=== PATIENT | female | born 1930 | race Caucasian/White ===

== ENCOUNTER 2016-09-25 12:17 | Inpatient (IN) | payer MEDICARE, BC ==
[2016-09-25] MEDS ORDERED: SODIUM CHLORIDE 0.9% 1,000 ML IV STA ×2 (13:17)
[2016-09-25] MEDS ORDERED: MORPHINE SULFATE 4 MG/ML SYRINGE IV STA (13:17)
[2016-09-25] MEDS ORDERED: ONDANSETRON 4 MG/2 ML VIAL IVP STA (13:17)
--- NOTE | 2016-09-25 13:17 | ED ---
General Adult HPI - General Chief complaint: Fall Stated complaint: Fall Time Seen by Provider: 09/25/16 12:19 Source: EMS, RN notes reviewed, old records reviewed Mode of arrival: EMS Limitations: no limitations - History of Present Illness Initial comments: This is a 85-year-old female the ER for evaluation. Patient was as a for evaluation of left hip pain. Left hip pain status post fall, patient has history of multiple orthopedic injuries including right hip fracture by Dr. Britton. Patient was also putting of left elbow pain. Patient did not hit her head has no headache, not on blood thinners. Patient's fall was mechanical slip and fall she was tripped over a sock noted on her for - Related Data Home Medications Medication Instructions Recorded Confirmed Atenolol [Tenormin] 12.5 mg PO BID 09/28/13 09/25/16 Ibuprofen [Motrin] 200 mg PO Q6HR PRN 09/25/16 09/25/16 Loratadine [Claritin] 10 mg PO DAILY 09/25/16 09/25/16 Oxymetazoline HCl [Vicks Sinex] 1 spray EA NOSTRIL DAILY PRN 09/25/16 09/25/16 Allergies Allergy/AdvReac Type Severity Reaction Status Date / Time No Known Allergies Allergy Verified 09/25/16 12:37 Review of Systems ROS Statement: Those systems with pertinent positive or pertinent negative responses have been documented in the HPI. ROS Other: All systems not noted in ROS Statement are negative. Past Medical History Past Medical History: Hyperlipidemia, Hypertension, Osteoarthritis (OA) History of Any Multi-Drug Resistant Organisms: None Reported Past Surgical History: Cholecystectomy, Hernia Repair, Hysterectomy, Orthopedic Surgery Past Psychological History: No Psychological Hx Reported Smoking Status: Former smoker General Exam Limitations: no limitations General appearance: alert, in no apparent distress Head exam: Present: atraumatic, normocephalic, normal inspection Eye exam: Present: normal appearance, PERRL, EOMI. Absent: scleral icterus, conjunctival injection, periorbital swelling ENT exam: Present: normal exam, mucous membranes moist Neck exam: Present: normal inspection. Absent: tenderness, meningismus, lymphadenopathy Respiratory exam: Present: normal lung sounds bilaterally. Absent: respiratory distress, wheezes, rales, rhonchi, stridor Cardiovascular Exam: Present: regular rate, normal rhythm, normal heart sounds. Absent: systolic murmur, diastolic murmur, rubs, gallop, clicks GI/Abdominal exam: Present: soft, normal bowel sounds. Absent: distended, tenderness, guarding, rebound, rigid Extremities exam: Present: normal inspection, full ROM, normal capillary refill , other (Left hip deformity, shortened). Absent: tenderness, pedal edema, joint swelling, calf tenderness Back exam: Present: normal inspection Neurological exam: Present: alert, oriented X3, CN II-XII intact Psychiatric exam: Present: normal affect, normal mood Skin exam: Present: warm, dry, intact, normal color. Absent: rash Course Vital Signs 09/25/16 12:20 Temperature 98.3 F Pulse Rate 69 Respiratory 16 Rate Blood Pressure 144/77 O2 Sat by Pulse 93 L Oximetry - Reevaluation(s) Reevaluation #1: 09/25/16 13:26 Pain is controlled at this point Medical Decision Making - Medical Decision Making 85 female ER for evaluation of hip fracture status post fall. Positive fracture , previous operation by Dr. Britton, will admit for orthopedic evaluation and treatment - Radiology Data Radiology results: report reviewed (X-ray left hip, x-ray left elbow, x-ray chest patient does have positive left hip fracture), image reviewed Disposition Clinical Impression: Hip fracture, left, Fall Disposition: ADMITTED IP TO THIS [facility] Condition: Fair Referrals: Carey Jimenez MD [Primary Care Provider] - 1-2 days
[2016-09-25] MEDS: SODIUM CHLORIDE 0.9% 1,000 ML IV ONE ×2 (13:40→16:01)
[2016-09-25 14:13] LABS: Basophils % (A) 0 %; CH 29.9; CHCM 32.6; Eosinophils # (A) 0.1 k/uL (0-0.7); Eosinophils % (A) 2 %; HCT 35.8 % (34.0-46.0); HDW 2.22; HGB 11.7 gm/dL (11.4-16.0); Luc # (Auto) 0.05; Luc % (Auto) 1; Lymphocytes # (A) 0.5 k/uL (1.0-4.8); Lymphocytes % (A) 6 %; MCH 30.2 pg (25.0-35.0); MCHC 32.8 g/dL (31.0-37.0); MCV 92.1 fL (80.0-100.0); Mean Platelet Volume 7.3; Monocytes # (A) 0.2 k/uL (0-1.0); Monocytes % (A) 3 %; Neutrophils # (A) 6.7 k/uL (1.3-7.7); Neutrophils % (A) 89 %; RBC 3.89 m/uL (3.80-5.40); WBC 7.6 k/uL (3.8-10.6); WBC (Perox) 7.81
--- NOTE | 2016-09-25 14:16 | XR ---
EXAMINATION TYPE: XR Hip LT and AP Pelvis DATE OF EXAM: 09/25/2016 1:12 PM COMPARISON: 09/28/2013 HISTORY: Left hip pain TECHNIQUE: 3 views are findings There is a right hip nailing fixing an apparent old intertrochanteric fracture of the right femur. Th ere is intramedullary patrice in the right femur. Bones are osteopenic. Pelvic ring appears intact. There is a nondisplaced intertrochanteric fracture left femur. There is no dislocation. IMPRESSION: There is acute intertrochanteric fracture left femur compared to old exam. No displacemen t.
[2016-09-25 14:22] LABS: ALT 23 U/L (9-52); AST 28 U/L (14-36); Alkaline Phosphatase 101 U/L (38-126); Anion Gap 8 mmol/L; Blood Urea Nitrogen 21 mg/dL (7-17); Carbon Dioxide 26 mmol/L (22-30); Chloride 108 mmol/L (98-107); Glucose 92 mg/dL (74-99); Non-African American GFR(MDRD) >60 (>60 ml/min/1.73 sqM); Potassium 4.2 mmol/L (3.5-5.1); Sodium 142 mmol/L (137-145); Total Bilirubin 0.5 mg/dL (0.2-1.3); Total Protein 6.7 g/dL (6.3-8.2)
[2016-09-25 14:27] LABS: INR 1.1 (<1.1); Partial Thromboplastin Time 33.2 sec (22.0-30.0); Prothrombin Time 10.7 sec (9.0-12.0)
[2016-09-25 14:34] LABS: Creatine Kinase 109 U/L (30-135)
[2016-09-25 14:47] LABS: Troponin I <0.012 ng/mL (0.000-0.034)
[2016-09-25 14:50] LABS: Creatine Kinase MB 3.6 ng/mL (0.0-2.4)
--- NOTE | 2016-09-25 14:57 | XR ---
EXAMINATION TYPE: XR chest 1V DATE OF EXAM: 09/25/2016 2:52 PM COMPARISON: 09/28/2013 HISTORY: Preop hip surgery TECHNIQUE: Single frontal view of the chest is obtained. FINDINGS: Heart is normal. The thoracic aorta is atheromatous. Lungs are clear. There is no heart fa ilure. There are no hilar masses. There is no pleural effusion. IMPRESSION: No active cardiopulmonary disease. Atheromatous aorta. There is clearing of interstitial pulmonary infiltrates since last exam.
--- NOTE | 2016-09-25 15:01 | XR ---
EXAMINATION TYPE: XR elbow complete LT DATE OF EXAM: 09/25/2016 1:12 PM COMPARISON: NONE HISTORY: Pain after a fall TECHNIQUE: 3 views FINDINGS: There is narrowing of the joint spaces. There is spurring on the radial head and the aman l condyles. I see no fracture. There is no dislocation. There is no sign of joint effusion. There is tiny 1 mm densities adjacent to the medial humeral condyle that could be cutaneous foreign bodies. IMPRESSION: Possible foreign bodies. Osteoarthritis. No fracture.
[2016-09-25] MEDS: MORPHINE SULFATE 2 MG/ML SYRINGE IVP PRN ×2 (15:58→21:20)
[2016-09-25 17:12] LABS: Appearance,Urine Clear (Clear); Bilirubin,Urine Negative (Negative); Glucose,Urine (UA) Negative (Negative); Ketones,Urine 1+ (Negative); Leukocyte Esterase,Urine Negative (Negative); Nitrite,Urine Negative (Negative); PH, Urine 5.5 (5.0-8.0); Protein,Urine Negative (Negative); Specific Gravity,Urine 1.013 (1.001-1.035); UA Billing (MACRO vs. MICRO) CHEM; Urobilinogen,Urine <2.0 mg/dL (<2.0)
[2016-09-26] MEDS: MORPHINE SULFATE 2 MG/ML SYRINGE IVP PRN (06:22)
--- NOTE | 2016-09-26 08:20 | P.HPOR ---
History of Present Illness H&P Date: 09/26/16 Chief Complaint: Left hip fracture This is an 85-year-old female who was admitted through the emergency department last evening after falling and sustaining injury to her left hip. She states that she was mopping her floor and slipped. On exam and x-ray in the emergency room she was found to have an intertrochanteric fracture of the left hip. Past Medical History Past Medical History: Hyperlipidemia, Hypertension, Osteoarthritis (OA) History of Any Multi-Drug Resistant Organisms: None Reported Past Surgical History: Cholecystectomy, Hernia Repair, Hysterectomy, Orthopedic Surgery Past Anesthesia/Blood Transfusion Reactions: No Reported Reaction Past Psychological History: No Psychological Hx Reported Smoking Status: Former smoker Medications and Allergies Home Medications Medication Instructions Recorded Confirmed Type Atenolol [Tenormin] 12.5 mg PO BID 09/28/13 09/25/16 History Ibuprofen [Motrin] 200 mg PO Q6HR PRN 09/25/16 09/25/16 History Loratadine [Claritin] 10 mg PO DAILY 09/25/16 09/25/16 History Oxymetazoline HCl [Vicks Sinex] 1 spray EA NOSTRIL DAILY PRN 09/25/16 09/25/16 History Allergies Allergy/AdvReac Type Severity Reaction Status Date / Time No Known Allergies Allergy Verified 09/25/16 12:37 Physical Examination This is a pleasant 85-year-old female in no acute distress. She is alert and oriented 3. Exam of the head and neck reveals no obvious deformity. She has full cervical spine motion without difficulty or pain. There is no pain on palpation about the cervical spine or paraspinal musculature. Exam of the upper extremities is unremarkable. She has fairly good shoulder, elbow, wrist and finger motion. Neurovascular status to the upper extremities is intact. Exam of the lower extremities reveals no obvious deformity. There is pain with any motion to the left hip. She has full foot and ankle motion without difficulty or pain. Neurovascular status to the lower extremities is intact. Results Hip and pelvis x-rays reveal hardware in place to the right hip and femur. There is an acute nondisplaced intertrochanteric fracture of the left hip. - Labs Labs: Abnormal Lab Results - Last 24 Hours (Table) 09/25/16 09/25/16 09/25/16 Range/Units 13:44 13:44 13:44 Lymphocytes # 0.5 L (1.0-4.8) k/uL APTT (22.0-30.0) sec Chloride 108 H (98-107) mmol/L BUN 21 H (7-17) mg/dL CK-MB (CK-2) 3.6 H* (0.0-2.4) ng/mL Urine Ketones (Negative) 09/25/16 09/25/16 Range/Units 13:44 17:00 Lymphocytes # (1.0-4.8) k/uL APTT 33.2 H (22.0-30.0) sec Chloride (98-107) mmol/L BUN (7-17) mg/dL CK-MB (CK-2) (0.0-2.4) ng/mL Urine Ketones 1+ H (Negative) Microbiology - Last 24 Hours (Table) 09/25/16 17:00 Urine Culture - Preliminary Urine,Catheterized H & H 09/25/16 Range/Units 13:44 Hgb 11.7 (11.4-16.0) gm/dL Hct 35.8 (34.0-46.0) % Coagulation 09/25/16 Range/Units 13:44 INR 1.1 (<1.1) Result Diagrams: 09/25/16 13:44 09/25/16 13:44 Assessment and Plan (1) Hip fracture, left Status: Acute (2) Intertrochanteric fracture of left hip Status: Acute Plan: The clinical and neck she findings are discussed the patient. It is recommended that she undergo closed reduction with insertion of intertrochanteric nail of the left hip. The procedures been discussed in detail including the possible risks and outcomes. She will most likely require inpatient rehab postoperatively.
[2016-09-26] MEDS: ENOXAPARIN 40 MG/0.4 ML SYRINGE SQ SCH (09:00)
--- NOTE | 2016-09-26 09:39 | P.CONS ---
History of Present Illness - Reason for Consult Consult date: 09/26/16 Medical management Requesting physician: Jesse Sweeney - Chief Complaint Left hip pain - History of Present Illness This is a 85-year-old female, patient of Dr. Rowe. She has a known past medical history of hypertension, hyperlipidemia and osteoarthritis. She also has a remote history of smoking. Patient was cleaning her kitchen in her house shoes that have. She tripped and fell landing on her left hip. She was unable to get up. Ambulance was called and she was brought into the emergency room. She was found to have a left hip fracture. She was admitted to the orthopedics service. She is scheduled for surgery today. She had no loss of consciousness. She did not hit her head. She denies any chest pain, shortness of breath, nausea or vomiting, diarrhea or constipation, burning with urination , fever or chills or sweats. We have been consulted for medical management. She's had further episodes of tripping and falling and previous fractures. Chest x-ray showed no acute pulmonary process: EKG had shown a normal sinus rhythm with a left anterior fascicular block and nonspecific ST abnormality. Troponin was negative patient has no chest pain Review of Systems Please refer to HPI otherwise unremarkable Past Medical History Past Medical History: Hyperlipidemia, Hypertension, Osteoarthritis (OA) History of Any Multi-Drug Resistant Organisms: None Reported Past Surgical History: Cholecystectomy, Hernia Repair, Hysterectomy, Orthopedic Surgery Past Anesthesia/Blood Transfusion Reactions: No Reported Reaction Past Psychological History: No Psychological Hx Reported Smoking Status: Former smoker Medications and Allergies Home Medications Medication Instructions Recorded Confirmed Type Atenolol [Tenormin] 12.5 mg PO BID 09/28/13 09/25/16 History Ibuprofen [Motrin] 200 mg PO Q6HR PRN 09/25/16 09/25/16 History Loratadine [Claritin] 10 mg PO DAILY 09/25/16 09/25/16 History Oxymetazoline HCl [Vicks Sinex] 1 spray EA NOSTRIL DAILY PRN 09/25/16 09/25/16 History Allergies Allergy/AdvReac Type Severity Reaction Status Date / Time No Known Allergies Allergy Verified 09/25/16 12:37 Physical Exam Vitals: Vital Signs Temp Pulse Pulse Resp BP BP Pulse Ox 09/26/16 07:00 98.1 F 76 18 122/59 90 L 09/25/16 23:20 79 18 09/25/16 22:23 98.1 F 79 18 112/57 93 L 09/25/16 16:14 98.1 F 87 18 124/62 91 L 09/25/16 12:20 98.3 F 69 16 144/77 93 L Intake and Output 09/25/16 09/26/16 09/26/16 22:59 06:59 14:59 Intake Total 240 600 Output Total 375 Balance 240 225 Intake: Intake, IV Titration 600 Amount Sodium Chloride 0.9% 1, 600 000 ml @ 100 mls/hr IV . Q10H [facility] Rx#:[id number] Oral 240 Output: Urine 375 Other: Voiding Method Indwelling Catheter Head normocephalic Neck supple Lungs clear to auscultation bilaterally no wheezing or crackles Heart regular rate and rhythm S1-S2, no rub or gallop Abdomen is soft nontender nondistended positive bowel sounds no hepatosplenomegaly Extremities no edema. Left leg elevated. Tenderness with palpation. Neuro alert and orientated to 3 Skin, no lesions or lacerations or rashes noted. There is bruising noted on left elbow Results CBC & Chem 7: 09/25/16 13:44 09/25/16 13:44 Labs: Abnormal Lab Results - Last 24 Hours (Table) 09/25/16 09/25/16 09/25/16 Range/Units 13:44 13:44 13:44 Lymphocytes # 0.5 L (1.0-4.8) k/uL APTT (22.0-30.0) sec Chloride 108 H (98-107) mmol/L BUN 21 H (7-17) mg/dL CK-MB (CK-2) 3.6 H* (0.0-2.4) ng/mL Urine Ketones (Negative) 09/25/16 09/25/16 Range/Units 13:44 17:00 Lymphocytes # (1.0-4.8) k/uL APTT 33.2 H (22.0-30.0) sec Chloride (98-107) mmol/L BUN (7-17) mg/dL CK-MB (CK-2) (0.0-2.4) ng/mL Urine Ketones 1+ H (Negative) Microbiology - Last 24 Hours (Table) 09/25/16 17:00 Urine Culture - Preliminary Urine,Catheterized Assessment and Plan Plan: 1. Acute left hip fracture: Patient is scheduled for closed reduction with insertion of intertrochanteric nail of the left hip. She is medically stable to proceed with surgery. Patient is intermediate risk for surgery due to her age and history of hypertension. No evidence of any acute infection. Chest x- ray negative. EKG reviewed showing normal sinus rhythm left anterior fascicular block and nonspecific ST-T abdomen only. Troponin negative. Last stress test was a year ago and was negative per patient 2. Essential hypertension continue with the atenolol 3. Seasonal ALLERGIES: Continue Claritin 4. History of hyperlipidemia GI prophylaxis Pepcid and DVT prophylaxis Lovenox Check routine labs in the morning Thank you for this consultation. We will continue to follow along with you. Time with Patient: Greater than 30 (Greater than 50% of the total time spent in counseling and coordination of care.I performed an examination of the patient and discussed their management with the physician Call Center Support Representative. I have reviewed the Physician Call Center Support Representative's notes and agree with the documented findings and plan of care)
[2016-09-26] MEDS ORDERED: LACTATED RINGERS 1,000 ML IV ONE (10:17)
[2016-09-26] MEDS ORDERED: ONDANSETRON 4 MG/2 ML VIAL IVP ONE (10:18)
[2016-09-26] MEDS ORDERED: diphenhydrAMINE 50 MG/ML 1 ML VIAL ONE (10:36)
[2016-09-26] MEDS ORDERED: MIDAZOLAM 2 MG/2 ML VIAL ONE (10:36)
[2016-09-26] MEDS ORDERED: PHENYLEPHRINE-0.9% NACL SYG 1 MG/10 ML SYRINGE ONE (10:36)
[2016-09-26] MEDS ORDERED: KETAMINE 10 MG/ML 20 ML VIAL ONE (10:36)
[2016-09-26] MEDS ORDERED: fentaNYL (PF) 50 MCG/ML 2 ML AMP ONE (10:36)
[2016-09-26] MEDS ORDERED: SODIUM CHLORIDE 0.9% 100 ML with ceFAZolin 1,000 MG IV ONE ×2 (10:50)
[2016-09-26] MEDS ORDERED: ceFAZolin 1,000 MG in SODIUM CHLORIDE 0.9% 1,000 ML IRRIGATION ONE (10:50)
--- NOTE | 2016-09-26 11:36 | P.OP ---
Date of Procedure: 09/26/16 Preoperative Diagnosis: Postoperative Diagnosis: Procedure(s) Performed: PREOPERATIVE DIAGNOSIS: Left hip intertrochanteric fracture. POSTOPERATIVE DIAGNOSIS: Left hip intertrochanteric fracture. OPERATION: Left hip intertrochanteric fracture closed reduction and intramedullary nailing using Synthes IT nail. FOOD SERVICE AIDE: Ruth Rodrigues (Assistance with: Patient positioning, retraction, exposure, hemostasis, fixation, irrigation, closure, dressing) ANESTHESIA: Spinal ESTIMATED BLOOD LOSS: 20 mL. COMPLICATIONS: None OPERATIVE FINDINGS: See dictation INDICATIONS: Mrs. Lugo is an 85-year-old female with a history of falling and sustaining a nondisplaced left intertrochanteric fracture. The patient presents to the operating room today for closed reduction and intramedullary nailing. I discussed the risks of surgery in detail as being inclusive of but not limited to: Bleeding, infection, scarring, discomfort, blood vessel and/or nerve damage, need for further surgery, malunion, nonunion, gait disturbance including persistent or permanent limp, limb length inequality, arthritis, hardware failure, blood clot, pulmonary embolism, , and other risks. The consent form has been signed. PROCEDURE: After appropriate consent was obtained, the patient was taken to the operating room and placed in supine position. Spinal anesthetic was administered and after confirmation of adequate anesthesia, the patient was carefully placed in the supine position on the operating room table in the fracture table. The patient was placed up against a well-padded peroneal post. Care was taken to make sure about that all pressure points were adequately padded. The affected leg was placed in boot traction and the unaffected leg was placed in a well leg feliciano. Using gentle longitudinal distraction as well as adduction and internal rotation, the fracture was reduced as assessed by AP and lateral C-arm imaging. Once a satisfactory reduction had been obtained, the thigh was prepped and draped in the usual aseptic fashion using ChloraPrep. Ioban drape was used for the case and the patient received intravenous antibiotics prior to incision. Timeout was called, confirming patient identity, side, procedure, and administration of antibiotics. The incision was then created with a #10 blade just proximal to the greater trochanter laterally. It was carried down through skin into the subcutaneous tissues and through fascia. Hemostasis was obtained using electrocautery. The tip of the greater trochanter was palpated and a guide pin was placed at the tip and directed into the femoral shaft as assessed with C-arm imaging. Once optimal pin position had been obtained, a 17 mm reamer was used over the guide pin to create a path for the IT nail. IT nail selected was assembled to the insertion jig on the back table and bushings were checked for accuracy. The nail was then inserted using gentle mallet taps until it was fully deployed. The amount of rotation of the implant was assessed based on the amount of anteversion of the femoral neck. This was rotated to match the patient's femoral neck anteversion and the helical blade guide was placed through the insertion jig and through an incision on the lateral side of the thigh more distal than the first. Once this guide was placed against the lateral cortex of the femur, a guide pin was drilled into the central region of the femoral head and neck as based on AP and lateral C-arm imaging. Once optimal pin position had been obtained, the guidewire was measured and appropriately sized helical blade was selected. The path for the helical blade was prepared using a tapered reamer. The helical blade was then inserted using gentle mallet taps along the guidewire until it was fully deployed. There was no displacement of the fracture during this step. The anti-rotation screw was locked down and the insertion apparatus for the helical blade was removed. The guide pin was then removed. Traction was then removed from the leg and the distal interlock was placed through the jig using standard technique. Finally, the insertion jig for the nail was removed and final C-arm images were taken and saved in both AP and lateral planes. The final x-rays showed satisfactory positioning of the implant and good reduction of the fracture. The top of the nail was plugged with a small quantity of bone wax and the incisions were then thoroughly irrigated with normal saline. Final hemostasis was obtained using electrocautery and closure of the fascia was performed using 0-Vicryl suture. 2-0 Vicryl suture was used in the subcutaneous tissues and andres were used for the skin. Sterile dressing was then applied and the patient was carefully removed from the fracture table frame and placed onto the stretcher. The patient tolerated the procedure well. There were no complications and 20 cc of blood loss. The patient was then subsequently transferred to recovery room in stable condition. Sponge and needle counts were correct. Implants: Indications for Procedure: Operative Findings: Description of Procedure:
--- NOTE | 2016-09-26 11:45 | FL ---
FLUOROSCOPY 36 seconds of fluoroscopy time were utilized during dynamic hip pinning of the left hip.. 2 images do cument the procedure.
[2016-09-26] MEDS ORDERED: HYDROmorphone 1 MG/ML 1 ML SYRINGE IVP PRN ×3 (11:55)
[2016-09-26] MEDS ORDERED: NALOXONE 0.4 MG/ML 1 ML VIAL IV PRN (11:55)
[2016-09-26] MEDS ORDERED: HYDROcodone/APAP 5-325MG 1 EACH TAB PO PRN (11:55)
[2016-09-26] MEDS ORDERED: MAGNESIUM HYDROXIDE 2,400 MG/10 ML CUP PO PRN (11:55)
--- NOTE | 2016-09-26 12:56 | XR ---
FLUOROSCOPY 36 seconds of fluoroscopy time were utilized during dynamic hip pinning of the left hip.. 2 images document the procedure.
[2016-09-26] MEDS: ceFAZolin 2 GM in SODIUM CHLORIDE 0.9% 100 ML IVPB ONE ×2 (15:26→17:28)
[2016-09-26 15:38] LABS: Basophils % (A) 0 %; CH 29.9; CHCM 31.8; Eosinophils # (A) 0.1 k/uL (0-0.7); Eosinophils % (A) 2 %; HCT 33.3 % (34.0-46.0); HDW 2.18; HGB 10.6 gm/dL (11.4-16.0); Luc # (Auto) 0.07; Luc % (Auto) 1; Lymphocytes # (A) 0.5 k/uL (1.0-4.8); Lymphocytes % (A) 9 %; MCH 30.2 pg (25.0-35.0); MCHC 31.9 g/dL (31.0-37.0); MCV 94.6 fL (80.0-100.0); Mean Platelet Volume 7.1; Monocytes # (A) 0.2 k/uL (0-1.0); Monocytes % (A) 4 %; Neutrophils # (A) 5.1 k/uL (1.3-7.7); Neutrophils % (A) 84 %; RBC 3.52 m/uL (3.80-5.40); RDW 14.1 % (11.5-15.5); WBC 6.1 k/uL (3.8-10.6); WBC (Perox) 6.55
[2016-09-26] MEDS: LACTATED RINGERS 1,000 ML IV SCH ×2 (17:27→23:53)
[2016-09-26] MEDS ORDERED: WARFARIN 2.5 MG TAB PO ONE (18:00)
[2016-09-26] MEDS: ceFAZolin 2 GM in SODIUM CHLORIDE 0.9% 100 ML IVPB SCH ×2 (18:07→19:44)
[2016-09-26] MEDS: HYDROcodone/APAP 5-325MG 1 EACH TAB PO PRN (18:33)
[2016-09-26] MEDS: ATENOLOL 25 MG TAB PO SCH (20:16)
[2016-09-26] MEDS: SENNOSIDES-DOCUSATE SODIUM 1 EACH TAB PO SCH (20:18)
[2016-09-26] MEDS ORDERED: TEMAZEPAM 15 MG CAP PO PRN (22:00)
[2016-09-27] MEDS: ceFAZolin 2 GM in SODIUM CHLORIDE 0.9% 100 ML IVPB SCH (00:05)
[2016-09-27 01:27] VITALS: RESP 16
[2016-09-27] MEDS: HYDROcodone/APAP 5-325MG 1 EACH TAB PO PRN ×3 (06:41→20:07)
[2016-09-27 07:23] LABS: Basophils % (A) 0 %; CHCM 31.7; Eosinophils # (A) 0.2 k/uL (0-0.7); Eosinophils % (A) 4 %; HCT 33.6 % (34.0-46.0); HDW 2.18; HGB 10.6 gm/dL (11.4-16.0); Luc # (Auto) 0.07; Luc % (Auto) 1; Lymphocytes # (A) 0.6 k/uL (1.0-4.8); Lymphocytes % (A) 11 %; MCH 30.1 pg (25.0-35.0); MCHC 31.6 g/dL (31.0-37.0); MCV 95.2 fL (80.0-100.0); Mean Platelet Volume 7.3; Monocytes # (A) 0.3 k/uL (0-1.0); Monocytes % (A) 5 %; Neutrophils # (A) 4.7 k/uL (1.3-7.7); Neutrophils % (A) 79 %; RBC 3.53 m/uL (3.80-5.40); RDW 14.1 % (11.5-15.5); WBC 5.9 k/uL (3.8-10.6); WBC (Perox) 5.89
[2016-09-27 07:28] LABS: INR 1.1 (<1.1); Prothrombin Time 11.1 sec (9.0-12.0)
[2016-09-27 07:44] LABS: ALT 61 U/L (9-52); AST 66 U/L (14-36); Alkaline Phosphatase 72 U/L (38-126); Anion Gap 6 mmol/L; Blood Urea Nitrogen 16 mg/dL (7-17); Calcium 8.1 mg/dL (8.4-10.2); Carbon Dioxide 25 mmol/L (22-30); Chloride 107 mmol/L (98-107); Glucose 82 mg/dL (74-99); Non-African American GFR(MDRD) >60 (>60 ml/min/1.73 sqM); Potassium 4.1 mmol/L (3.5-5.1); Sodium 138 mmol/L (137-145); Total Bilirubin 0.9 mg/dL (0.2-1.3); Total Protein 5.8 g/dL (6.3-8.2)
[2016-09-27] MEDS: ENOXAPARIN 40 MG/0.4 ML SYRINGE SQ SCH (08:29)
[2016-09-27] MEDS: ATENOLOL 25 MG TAB PO SCH ×2 (08:29→19:51)
[2016-09-27] MEDS: FAMOTIDINE 20 MG TAB PO SCH (08:30)
[2016-09-27] MEDS: LORATADINE 10 MG TAB PO SCH (08:30)
--- NOTE | 2016-09-27 09:38 | P.PN ---
Subjective Principal diagnosis: Status post IT nail left hip This is a 85 year-old female post left hip IT nail. This is post-op day 1. The patient was evaluated in a recliner chair at the bedside today. The patient denies nausea, vomiting, abdominal pain, shortness of breath, and chest pain this morning. She states her pain is controlled at this time. The patient has not been up with physical therapy yet this morning. Objective - Vital Signs Vital signs: Vital Signs Temp 98.7 F 09/27/16 07:00 Pulse 72 09/27/16 07:00 Resp 16 09/27/16 07:00 BP 120/58 09/27/16 07:00 Pulse Ox 94 L 09/27/16 08:57 Intake & Output 09/26/16 09/27/16 09/27/16 18:59 06:59 18:59 Intake Total 1800 2200 Output Total 200 600 150 Balance 1600 1600 -150 Weight 54.431 kg Intake: IV 1700 1300 Lactated Ringers 1,000 ml 1100 @ 100 mls/hr IV .Q10H [facility] Rx#:[id number] ceFAZolin 2 gm In Sodium 200 Chloride 0.9% 100 ml @ 100 mls/hr IVPB Q8HR [facility] Rx#:[id number] Intake, IV Titration 100 900 Amount Lactated Ringers 1,000 ml 800 @ 100 mls/hr IV .Q10H [facility] Rx#:[id number] ceFAZolin 2 gm In Sodium 100 Chloride 0.9% 100 ml @ 100 mls/hr IVPB ONCE ONE Rx#:[id number] ceFAZolin 2 gm In Sodium 100 Chloride 0.9% 100 ml @ 100 mls/hr IVPB Q8HR [facility] Rx#:[id number] Output: Urine 150 600 150 Uretheral (Leone) 600 Estimated Blood Loss 50 Other: Voiding Method Indwelling Catheter Indwelling Catheter - Exam The patient does not appear in acute distress. Alert and orientated x3. Dressing is clean dry and intact. Incision appears fine with no erythema or active drainage. Calf is soft and nontender. Good foot and ankle motion without difficulty. Sensation and circulatory status is intact. - Labs CBC & Chem 7: 09/27/16 06:44 09/27/16 06:44 Labs: Abnormal Lab Results - Last 24 Hours (Table) 09/26/16 09/27/16 09/27/16 Range/Units 15:03 06:44 06:44 RBC 3.52 L 3.53 L (3.80-5.40) m/uL Hgb 10.6 L 10.6 L (11.4-16.0) gm/dL Hct 33.3 L 33.6 L (34.0-46.0) % Plt Count 135 L 134 L (150-450) k/uL Lymphocytes # 0.5 L 0.6 L (1.0-4.8) k/uL Calcium 8.1 L (8.4-10.2) mg/dL AST 66 H (14-36) U/L ALT 61 H (9-52) U/L Total Protein 5.8 L (6.3-8.2) g/dL Albumin 3.0 L (3.5-5.0) g/dL Microbiology - Last 24 Hours (Table) 09/25/16 17:00 Urine Culture - Final Urine,Catheterized Laboratory Tests 09/27/16 06:44 PT 11.1 INR 1.1 Assessment and Plan (1) Fall Status: Acute (2) Intertrochanteric fracture of left hip Status: Acute (3) Status post hip surgery Status: Acute Plan: 1. Continue pain control 2. Anticoagulation with Coumadin per protocol 3. Start physical therapy and ambulation, weightbearing 50% to the left leg 4. Anticipate discharge to skilled rehab upon discharge
--- NOTE | 2016-09-27 16:33 | P.PN ---
Subjective This is a 85-year-old female, patient of Dr. Rowe. She has a known past medical history of hypertension, hyperlipidemia and osteoarthritis. She also has a remote history of smoking. Patient was cleaning her kitchen in her house shoes that have. She tripped and fell landing on her left hip. She was unable to get up. Ambulance was called and she was brought into the emergency room. She was found to have a left hip fracture. She was admitted to the orthopedics service. She underwent surgery yesterday, patient is still complaining of lower extremity pain otherwise she denies any complaints. Objective - Vital Signs Vital signs: Vital Signs Temp 97 F L 09/27/16 14:00 Pulse 83 09/27/16 14:00 Resp 16 09/27/16 14:00 BP 125/64 09/27/16 14:00 Pulse Ox 97 09/27/16 14:00 Intake & Output 09/26/16 09/27/16 09/27/16 18:59 06:59 18:59 Intake Total 1800 2200 600 Output Total 200 600 800 Balance 1600 1600 -200 Weight 54.431 kg 54.431 kg Intake: IV 1700 1300 0 Lactated Ringers 1,000 ml 1100 0 @ 100 mls/hr IV .Q10H [facility] Rx#:[id number] ceFAZolin 2 gm In Sodium 200 Chloride 0.9% 100 ml @ 100 mls/hr IVPB Q8HR [facility] Rx#:[id number] Intake, IV Titration 100 900 Amount Lactated Ringers 1,000 ml 800 @ 100 mls/hr IV .Q10H [facility] Rx#:[id number] ceFAZolin 2 gm In Sodium 100 Chloride 0.9% 100 ml @ 100 mls/hr IVPB ONCE ONE Rx#:[id number] ceFAZolin 2 gm In Sodium 100 Chloride 0.9% 100 ml @ 100 mls/hr IVPB Q8HR [facility] Rx#:[id number] Oral 600 Output: Urine 150 600 800 Uretheral (Leone) 600 250 Estimated Blood Loss 50 Other: Voiding Method Indwelling Catheter Indwelling Catheter # Voids 1 - Exam In general patient is alert and oriented 3 in no apparent distress HEENT head normocephalic and atraumatic Neck is supple no JVD no goiter no lymphadenopathy Chest exam reveals few scatterd rhonchi, no wheezing Cardiac exam reveals regular heart sounds no gallops no murmurs Abdomen is soft nontender no organomegaly Extremity exam reveals no edema no cyanosis or clubbing - Labs CBC & Chem 7: 09/27/16 06:44 09/27/16 06:44 Labs: Abnormal Lab Results - Last 24 Hours (Table) 09/27/16 09/27/16 Range/Units 06:44 06:44 RBC 3.53 L (3.80-5.40) m/uL Hgb 10.6 L (11.4-16.0) gm/dL Hct 33.6 L (34.0-46.0) % Plt Count 134 L (150-450) k/uL Lymphocytes # 0.6 L (1.0-4.8) k/uL Calcium 8.1 L (8.4-10.2) mg/dL AST 66 H (14-36) U/L ALT 61 H (9-52) U/L Total Protein 5.8 L (6.3-8.2) g/dL Albumin 3.0 L (3.5-5.0) g/dL Microbiology - Last 24 Hours (Table) 09/25/16 17:00 Urine Culture - Final Urine,Catheterized Assessment and Plan Plan: 1. Acute left hip fracture: Patient underwent surgery yesterday, uncomplicated postoperative course will follow closely 2. Essential hypertension continue with the atenolol 3. Seasonal ALLERGIES: Continue Claritin 4. History of hyperlipidemia GI prophylaxis Pepcid and DVT prophylaxis Lovenox
[2016-09-27] MEDS ORDERED: WARFARIN 5 MG TAB PO ONE (18:00)
[2016-09-27] MEDS: LACTATED RINGERS 1,000 ML IV SCH (18:18)
[2016-09-27] MEDS: SENNOSIDES-DOCUSATE SODIUM 1 EACH TAB PO SCH (19:51)
[2016-09-28] MEDS: HYDROcodone/APAP 5-325MG 1 EACH TAB PO PRN ×3 (02:45→19:28)
[2016-09-28 07:24] LABS: Basophils % (A) 0 %; CH 29.9; CHCM 32.4; Eosinophils # (A) 0.3 k/uL (0-0.7); Eosinophils % (A) 5 %; HCT 31.9 % (34.0-46.0); HDW 2.27; HGB 10.5 gm/dL (11.4-16.0); Luc # (Auto) 0.08; Luc % (Auto) 1; Lymphocytes # (A) 0.7 k/uL (1.0-4.8); Lymphocytes % (A) 12 %; MCH 30.5 pg (25.0-35.0); MCHC 32.9 g/dL (31.0-37.0); MCV 92.8 fL (80.0-100.0); Mean Platelet Volume 7.3; Monocytes # (A) 0.3 k/uL (0-1.0); Monocytes % (A) 5 %; Neutrophils # (A) 4.5 k/uL (1.3-7.7); Neutrophils % (A) 77 %; RBC 3.44 m/uL (3.80-5.40); RDW 14.1 % (11.5-15.5); WBC 5.8 k/uL (3.8-10.6)
[2016-09-28] MEDS: FAMOTIDINE 20 MG TAB PO SCH (07:33)
[2016-09-28] MEDS: LORATADINE 10 MG TAB PO SCH (07:33)
[2016-09-28] MEDS: ATENOLOL 25 MG TAB PO SCH ×2 (07:34→20:21)
[2016-09-28 07:39] LABS: ALT 35 U/L (9-52); AST 39 U/L (14-36); Alkaline Phosphatase 64 U/L (38-126); Anion Gap 6 mmol/L; Blood Urea Nitrogen 14 mg/dL (7-17); Calcium 8.3 mg/dL (8.4-10.2); Carbon Dioxide 29 mmol/L (22-30); Chloride 105 mmol/L (98-107); Glucose 93 mg/dL (74-99); Non-African American GFR(MDRD) >60 (>60 ml/min/1.73 sqM); Potassium 3.9 mmol/L (3.5-5.1); Sodium 140 mmol/L (137-145); Total Bilirubin 0.7 mg/dL (0.2-1.3); Total Protein 5.8 g/dL (6.3-8.2)
[2016-09-28] MEDS: hydrOXYzine PAMOATE 25 MG CAP PO PRN ×2 (07:44→19:29)
[2016-09-28] MEDS: ENOXAPARIN 40 MG/0.4 ML SYRINGE SQ SCH (07:49)
[2016-09-28 08:49] LABS: INR 1.3 (<1.1); Prothrombin Time 12.4 sec (9.0-12.0)
--- NOTE | 2016-09-28 09:13 | P.PN ---
Subjective Principal diagnosis: Status post IT nail left hip This is a 85 year-old female post left hip IT nail. This is post-op day 2. The patient was evaluated in a recliner chair at the bedside today. The patient denies nausea, vomiting, abdominal pain, shortness of breath, and chest pain this morning. She states her pain is controlled at this time. The patient has been up with physical therapy and ambulated to the bathroom this morning. Objective - Vital Signs Vital signs: Vital Signs Temp 98.0 F 09/28/16 07:30 Pulse 64 09/28/16 08:00 Resp 16 09/28/16 08:00 BP 137/54 09/28/16 07:30 Pulse Ox 92 L 09/28/16 07:30 Intake & Output 09/27/16 09/28/16 09/28/16 18:59 06:59 18:59 Intake Total 600 Output Total 800 150 Balance -200 -150 Weight 54.431 kg Intake: IV 0 Lactated Ringers 1,000 ml 0 @ 100 mls/hr IV .Q10H [facility] Rx#:[id number] Oral 600 Output: Urine 800 150 Uretheral (Leone) 250 Other: Voiding Method Toilet Bedpan # Voids 1 1 - Exam The patient does not appear in acute distress. Alert and orientated x3. Dressing is clean dry and intact. Incision appears fine with no erythema or active drainage. Calf is soft and nontender. Good foot and ankle motion without difficulty. Sensation and circulatory status is intact. - Labs CBC & Chem 7: 09/28/16 06:52 09/28/16 06:52 Labs: Abnormal Lab Results - Last 24 Hours (Table) 09/28/16 09/28/16 09/28/16 Range/Units 06:52 06:52 06:52 RBC 3.44 L (3.80-5.40) m/uL Hgb 10.5 L (11.4-16.0) gm/dL Hct 31.9 L (34.0-46.0) % Plt Count 130 L (150-450) k/uL Lymphocytes # 0.7 L (1.0-4.8) k/uL PT 12.4 H (9.0-12.0) sec Calcium 8.3 L (8.4-10.2) mg/dL AST 39 H (14-36) U/L Total Protein 5.8 L (6.3-8.2) g/dL Albumin 2.9 L (3.5-5.0) g/dL Laboratory Tests 09/28/16 06:52 PT 12.4 H INR 1.3 Assessment and Plan (1) Fall Status: Acute (2) Intertrochanteric fracture of left hip Status: Acute (3) Status post hip surgery Status: Acute Plan: 1. Continue pain control 2. Anticoagulation with Coumadin per protocol 3. Continue physical therapy and ambulation, weightbearing 50% to the left leg 4. Anticipate discharge to skilled rehab when bed is available and medically cleared.
[2016-09-28 13:00] LABS: Basophils % (A) 0 %; CH 30.1; CHCM 32.1; Eosinophils # (A) 0.2 k/uL (0-0.7); Eosinophils % (A) 2 %; HCT 35.4 % (34.0-46.0); HDW 2.26; HGB 11.5 gm/dL (11.4-16.0); Luc # (Auto) 0.06; Luc % (Auto) 1; Lymphocytes # (A) 0.5 k/uL (1.0-4.8); Lymphocytes % (A) 8 %; MCH 30.7 pg (25.0-35.0); MCHC 32.5 g/dL (31.0-37.0); MCV 94.3 fL (80.0-100.0); Mean Platelet Volume 7.5; Monocytes # (A) 0.3 k/uL (0-1.0); Monocytes % (A) 5 %; Neutrophils # (A) 5.4 k/uL (1.3-7.7); Neutrophils % (A) 84 %; RBC 3.75 m/uL (3.80-5.40); RDW 13.9 % (11.5-15.5); WBC 6.5 k/uL (3.8-10.6); WBC (Perox) 6.91
[2016-09-28] MEDS: WARFARIN 5 MG TAB PO SCH (16:59)
--- NOTE | 2016-09-28 17:14 | P.PN ---
Subjective This is a 85-year-old female, patient of Dr. Rowe. She has a known past medical history of hypertension, hyperlipidemia and osteoarthritis. She also has a remote history of smoking. Patient was cleaning her kitchen in her house shoes that have. She tripped and fell landing on her left hip. She was unable to get up. Ambulance was called and she was brought into the emergency room. She was found to have a left hip fracture. She was admitted to the orthopedics service. She underwent surgery yesterday, patient is still complaining of lower extremity pain otherwise she denies any complaints. Objective - Vital Signs Vital signs: Vital Signs Temp 98.4 F 09/28/16 13:56 Pulse 82 09/28/16 13:56 Resp 16 09/28/16 13:56 BP 129/66 09/28/16 13:56 Pulse Ox 94 L 09/28/16 13:56 Intake & Output 09/27/16 09/28/16 09/28/16 18:59 06:59 18:59 Intake Total 600 240 Output Total 800 150 Balance -200 -150 240 Weight 54.431 kg Intake: IV 0 Lactated Ringers 1,000 ml 0 @ 100 mls/hr IV .Q10H [facility] Rx#:[id number] Oral 600 240 Output: Urine 800 150 Uretheral (Leone) 250 Other: Voiding Method Toilet Bedpan # Voids 1 1 1 # Bowel Movements 1 - Exam In general patient is alert and oriented 3 in no apparent distress HEENT head normocephalic and atraumatic Neck is supple no JVD no goiter no lymphadenopathy Chest exam reveals few scatterd rhonchi, no wheezing Cardiac exam reveals regular heart sounds no gallops no murmurs Abdomen is soft nontender no organomegaly Extremity exam reveals no edema no cyanosis or clubbing - Labs CBC & Chem 7: 09/28/16 12:14 09/28/16 06:52 Labs: Abnormal Lab Results - Last 24 Hours (Table) 09/28/16 09/28/16 09/28/16 Range/Units 06:52 06:52 06:52 RBC 3.44 L (3.80-5.40) m/uL Hgb 10.5 L (11.4-16.0) gm/dL Hct 31.9 L (34.0-46.0) % Plt Count 130 L (150-450) k/uL Lymphocytes # 0.7 L (1.0-4.8) k/uL PT 12.4 H (9.0-12.0) sec Calcium 8.3 L (8.4-10.2) mg/dL AST 39 H (14-36) U/L Total Protein 5.8 L (6.3-8.2) g/dL Albumin 2.9 L (3.5-5.0) g/dL 09/28/16 Range/Units 12:14 RBC 3.75 L (3.80-5.40) m/uL Hgb (11.4-16.0) gm/dL Hct (34.0-46.0) % Plt Count 139 L (150-450) k/uL Lymphocytes # 0.5 L (1.0-4.8) k/uL PT (9.0-12.0) sec Calcium (8.4-10.2) mg/dL AST (14-36) U/L Total Protein (6.3-8.2) g/dL Albumin (3.5-5.0) g/dL Assessment and Plan Plan: 1. Acute left hip fracture: Patient underwent surgery, she is post op day #2 uncomplicated postoperative course will follow closely 2. Essential hypertension continue with the atenolol 3. Seasonal ALLERGIES: Continue Claritin 4. History of hyperlipidemia GI prophylaxis Pepcid and DVT prophylaxis patient started on Coumadin per orthopedic protocol
[2016-09-28] MEDS: SENNOSIDES-DOCUSATE SODIUM 1 EACH TAB PO SCH (20:21)
[2016-09-29] MEDS: HYDROcodone/APAP 5-325MG 1 EACH TAB PO PRN ×3 (01:40→17:13)
[2016-09-29] MEDS: hydrOXYzine PAMOATE 25 MG CAP PO PRN ×3 (01:41→17:12)
[2016-09-29 07:30] LABS: Basophils % (A) 0 %; CH 30.2; CHCM 32.3; Eosinophils # (A) 0.2 k/uL (0-0.7); Eosinophils % (A) 4 %; HCT 32.9 % (34.0-46.0); HDW 2.33; HGB 10.7 gm/dL (11.4-16.0); Luc # (Auto) 0.09; Luc % (Auto) 2; Lymphocytes # (A) 0.7 k/uL (1.0-4.8); Lymphocytes % (A) 13 %; MCH 30.4 pg (25.0-35.0); MCHC 32.4 g/dL (31.0-37.0); MCV 93.9 fL (80.0-100.0); Mean Platelet Volume 7.3; Monocytes # (A) 0.3 k/uL (0-1.0); Monocytes % (A) 5 %; Neutrophils # (A) 4.1 k/uL (1.3-7.7); Neutrophils % (A) 76 %; RDW 13.9 % (11.5-15.5); WBC 5.4 k/uL (3.8-10.6); WBC (Perox) 5.81
[2016-09-29 07:41] LABS: INR 2.3 (<1.1); Prothrombin Time 22.5 sec (9.0-12.0)
[2016-09-29 07:43] LABS: ALT 33 U/L (9-52); AST 28 U/L (14-36); Alkaline Phosphatase 63 U/L (38-126); Anion Gap 6 mmol/L; Blood Urea Nitrogen 15 mg/dL (7-17); Calcium 8.4 mg/dL (8.4-10.2); Carbon Dioxide 30 mmol/L (22-30); Chloride 105 mmol/L (98-107); Glucose 98 mg/dL (74-99); Non-African American GFR(MDRD) >60 (>60 ml/min/1.73 sqM); Potassium 4.2 mmol/L (3.5-5.1); Sodium 141 mmol/L (137-145); Total Bilirubin 0.7 mg/dL (0.2-1.3); Total Protein 5.8 g/dL (6.3-8.2)
[2016-09-29] MEDS: ENOXAPARIN 40 MG/0.4 ML SYRINGE SQ SCH (08:41)
[2016-09-29] MEDS: ATENOLOL 25 MG TAB PO SCH ×2 (08:41→20:08)
[2016-09-29] MEDS: LORATADINE 10 MG TAB PO SCH (08:41)
[2016-09-29] MEDS: FAMOTIDINE 20 MG TAB PO SCH (08:41)
--- NOTE | 2016-09-29 08:41 | XR ---
EXAMINATION TYPE: XR Hip Limited LT DATE OF EXAM ORDERED: 09/29/2016 HISTORY: left hip pain. COMPARISON: Previous study dated 09/25/2016. FINDINGS: There has been intramedullary patrice and dynamic hip pinning of the intertrochanteric fractur e of the left hip. Position and alignment are anatomic. IMPRESSION: STATUS POST INTERNAL FIXATION OF THE LEFT HIP.
--- NOTE | 2016-09-29 08:45 | XR ---
EXAMINATION TYPE: XR pelvis AP view DATE OF EXAM ORDERED: 09/29/2016 HISTORY: s/p ORIF left hip, severe pain. COMPARISON: None. FINDINGS: There have been bilateral hip pinning. The entire inferior extent of the hardware is not v isualized. Position and alignment of the patient's left intertrochanteric fracture are anatomic. Ther e is minimal displacement of the lesser trochanter on the left. There are degenerative changes in the lumbar spine. No additional pelvic fracture is seen. IMPRESSION: STATUS POST LEFT HIP PINNING.
--- NOTE | 2016-09-29 09:02 | P.PN ---
Subjective Principal diagnosis: Left intertrochanteric fracture. Status post closed reduction with IT nail insertion left hip. This is an 85-year-old female who is status post close reduction with insertion of intertrochanteric nail of the left hip. She was doing quite well but then had some increased pain last evening while ambulating. The patient's nurse states that she heard a popping sound from the hip. The patient is having more difficulty with ambulation today. Objective - Vital Signs Vital signs: Vital Signs Temp 97.8 F 09/29/16 07:22 Pulse 88 09/29/16 07:22 Resp 16 09/29/16 07:22 BP 165/83 09/29/16 07:22 Pulse Ox 94 L 09/29/16 07:22 Intake & Output 09/28/16 09/29/16 09/29/16 18:59 06:59 18:59 Intake Total 240 200 Output Total 300 Balance -60 200 Intake: Oral 240 200 Output: Urine 300 Other: Voiding Method Toilet Bedpan # Voids 1 1 # Bowel Movements 1 - Exam This is an 85-year-old female in no acute distress. She is alert and oriented 3. Exam of the left hip reveals that her dressing is clean, dry and intact. She has full foot ankle motion without difficulty or pain. There is mild pain with logroll of the hip. She points to her groin and upper thigh as source of pain. There is no pain to palpation about the sacrum or low back. Neurovascular status to the lower extremity is intact. - Labs CBC & Chem 7: 09/29/16 06:39 09/29/16 06:39 Labs: Abnormal Lab Results - Last 24 Hours (Table) 09/28/16 09/29/16 09/29/16 Range/Units 12:14 06:39 06:39 RBC 3.75 L 3.50 L (3.80-5.40) m/uL Hgb 10.7 L (11.4-16.0) gm/dL Hct 32.9 L (34.0-46.0) % Plt Count 139 L (150-450) k/uL Lymphocytes # 0.5 L 0.7 L (1.0-4.8) k/uL PT (9.0-12.0) sec Total Protein 5.8 L (6.3-8.2) g/dL Albumin 3.0 L (3.5-5.0) g/dL 09/29/16 Range/Units 06:39 RBC (3.80-5.40) m/uL Hgb (11.4-16.0) gm/dL Hct (34.0-46.0) % Plt Count (150-450) k/uL Lymphocytes # (1.0-4.8) k/uL PT 22.5 H (9.0-12.0) sec Total Protein (6.3-8.2) g/dL Albumin (3.5-5.0) g/dL Assessment and Plan (1) Hip fracture, left Status: Acute (2) Intertrochanteric fracture of left hip Status: Acute Plan: The clinical findings are discussed with the patient. X-rays of the left hip and pelvis taken today were reviewed. There is avulsion of the lesser trochanter which was less evident on initial films. It is discussed the patient that this is a very common finding and intertrochanteric fractures. We will increase her pain medicine. She is cleared to be discharged to rehab from an orthopedic standpoint.
--- NOTE | 2016-09-29 09:07 | P.DS ---
Providers Date of admission: 09/25/16 13:17 Expected date of discharge: 09/29/16 Attending physician: Jesse Sweeney Consults: 09/25/16 15:30 Consult Physician Urgent Consulting Provider: Torsten Flynn Consult Reason/Comments: med Do you want consulting provider notified?: Yes Primary care physician: Carey Jimenez - Discharge Diagnosis(es) (1) Hip fracture, left Current Visit: Yes Status: Acute (2) Intertrochanteric fracture of left hip Current Visit: Yes Status: Acute Hospital Course: This is an 85-year-old female who is admitted to [facility] on 09/25/2016 after falling and sustaining injury to the left hip. On exam and x- ray in the emergency department he is found to have an intertrochanteric fracture of the left hip. He is admitted to our service for surgical intervention and care. Patient is taken to surgery for close reduction and insertion of intertrochanteric nail of the left hip. The procedure was performed without complication or sequelae. The patient is doing fairly well postoperatively. Vital signs and labs are stable on postoperative day #3. Patient is discharged to inpatient rehab in good condition. Please see med rec for accurate list of discharge medications. Patient Condition at Discharge: Fair Plan - Discharge Summary New Discharge Prescriptions: New Sennosides-Docusate Sodium [Senokot-S] 1 tab PO BID #60 tablet Warfarin [Coumadin] 2.5 mg PO DAILY #30 tab HYDROcodone/APAP 7.5-325MG [[place]on 7.5-325] 1 - 2 tab PO Q4-6H PRN #90 tab PRN Reason: Pain No Action Atenolol [Tenormin] 12.5 mg PO BID Loratadine [Claritin] 10 mg PO DAILY Ibuprofen [Motrin] 200 mg PO Q6HR PRN PRN Reason: Pain Oxymetazoline HCl [Vicks Sinex] 1 spray EA NOSTRIL DAILY PRN PRN Reason: Congestion Discharge Medication List Atenolol [Tenormin] 12.5 mg PO BID 09/28/13 [History] Ibuprofen [Motrin] 200 mg PO Q6HR PRN 09/25/16 [History] Loratadine [Claritin] 10 mg PO DAILY 09/25/16 [History] Oxymetazoline HCl [Vicks Sinex] 1 spray EA NOSTRIL DAILY PRN 09/25/16 [History] Sennosides-Docusate Sodium [Senokot-S] 1 tab PO BID #60 tablet 09/26/16 [Rx] Warfarin [Coumadin] 2.5 mg PO DAILY #30 tab 09/26/16 [Rx] HYDROcodone/APAP 7.5-325MG [Cresson 7.5-325] 1 - 2 tab PO Q4-6H PRN #90 tab [Rx] Follow up Appointment(s)/Referral(s): Ruth Rodrigues PAC [PHYSICIAN FLOATING DERRICK OPERATOR] - 3 Weeks Carey Jimenez MD [Primary Care Provider] - 1-2 days Ambulatory/Diagnostic Orders: Prothrombin Time INR [LAB.AMB] Location: Determined By Patient Activity/Diet/Wound Care/Special Instructions: Weightbearing 50%with walker Daily dressing changes Keep incision clean and dry May shower if no drainage from incision Coumadin 2.5 mg 1 by mouth daily with weekly PT/INRs Call [facility] with questions or concerns [phone] Discharge Disposition: TRANSFER TO SNF/ECF
--- NOTE | 2016-09-29 11:00 | XR ---
EXAMINATION TYPE: XR chest 1V portable DATE OF EXAM: 09/29/2016 COMPARISON: Prior chest x-ray 09/25/2016 HISTORY: Fever and cough TECHNIQUE: Single frontal view of the chest is obtained. FINDINGS: There is no pleural effusion, or pneumothorax seen. The cardiac silhouette size is stable , patient is rotated, heart may be enlarged. Patchy basilar density is suspected. The osseous struct ures are intact. IMPRESSION: Suspect some basilar atelectasis, follow-up, patient is rotated. Cardiomegaly.
--- NOTE | 2016-09-29 11:24 | P.PN ---
Subjective this is a 85-year-old female, patient of Dr. Rowe. She has a known past medical history of hypertension, hyperlipidemia and osteoarthritis. She also has a remote history of smoking. Patient was cleaning her kitchen in her house shoes that have. She tripped and fell landing on her left hip. She was unable to get up. Ambulance was called and she was brought into the emergency room. She was found to have a left hip fracture. She was admitted to the orthopedics service. Patient tolerated surgery of the left hip well. Yesterday she is walking with the nurse and had increased pain in her left hip. Repeat x-ray obtained. Was reviewed by orthopedics. And they have cleared her for discharge to [facility]. Patient did have a temp of 101.1 and she admits to a cough and some chills. Chest x-ray has been ordered. She denies any chest pain or shortness of breath. Denies any nausea or vomiting. Last bowel movement 2 days ago. Denies any burning with urination. Objective - Vital Signs Vital signs: Vital Signs Temp 97.8 F 09/29/16 07:22 Pulse 88 09/29/16 08:00 Resp 16 09/29/16 08:00 BP 165/83 09/29/16 07:22 Pulse Ox 94 L 09/29/16 07:22 Intake & Output 09/28/16 09/29/16 09/29/16 18:59 06:59 18:59 Intake Total 240 200 Output Total 300 Balance -60 200 Intake: Oral 240 200 Output: Urine 300 Other: Voiding Method Toilet Bedpan Bedpan # Voids 1 1 2 # Bowel Movements 1 - Exam Head normocephalic Neck supple Lungs diminished at the bases with few coarse breath sounds Heart regular rate and rhythm S1-S2, no rub or gallop Abdomen is soft nontender nondistended positive bowel sounds no hepatosplenomegaly Extremities trace swelling noted on left leg. Hip incision clean dry and intact Neuro alert and orientated to 3 - Labs CBC & Chem 7: 09/29/16 06:39 09/29/16 06:39 Labs: Abnormal Lab Results - Last 24 Hours (Table) 09/28/16 09/29/16 09/29/16 Range/Units 12:14 06:39 06:39 RBC 3.75 L 3.50 L (3.80-5.40) m/uL Hgb 10.7 L (11.4-16.0) gm/dL Hct 32.9 L (34.0-46.0) % Plt Count 139 L (150-450) k/uL Lymphocytes # 0.5 L 0.7 L (1.0-4.8) k/uL PT (9.0-12.0) sec Total Protein 5.8 L (6.3-8.2) g/dL Albumin 3.0 L (3.5-5.0) g/dL /12/08 Range/Units 06:39 RBC (3.80-5.40) m/uL Hgb (11.4-16.0) gm/dL Hct (34.0-46.0) % Plt Count (150-450) k/uL Lymphocytes # (1.0-4.8) k/uL PT 22.5 H (9.0-12.0) sec Total Protein (6.3-8.2) g/dL Albumin (3.5-5.0) g/dL Assessment and Plan Plan: 1. Acute left hip fracture: Status post closed reduction and intramedullary nailing of the left hip intraventricular fracture. Orthopedics have increased patient's pain medication 2. Essential hypertension continue with the atenolol 3. Seasonal ALLERGIES: Continue Claritin 4. History of hyperlipidemia 5. Fever spike with cough and chills. Check chest x-ray. Check blood culture and urine culture. Encourage incentive spirometry use. Continue to monitor. No evidence of cellulitis at incision site DVT prophylaxis Coumadin INR 2.3 Patient not medically stable for discharge. Need to evaluate patient's fever. I performed an examination of the patient and discussed their management with the physician Procedure Writer. I have reviewed the Physician Procedure Writer's notes and agree with the documented findings and plan of care
[2016-09-29] MEDS: WARFARIN 5 MG TAB PO SCH (17:12)
[2016-09-29 18:21] LABS: Appearance,Urine Clear (Clear); Bacteria,Urine Rare /hpf; Bilirubin,Urine Negative (Negative); Glucose,Urine (UA) Negative (Negative); Ketones,Urine Negative (Negative); Leukocyte Esterase,Urine Trace (Negative); Mucus,Urine Rare /hpf; Nitrite,Urine Negative (Negative); Particle Count 3049; Protein,Urine Trace (Negative); RBC,Urine 2 /hpf (0-5); Specific Gravity,Urine 1.015 (1.001-1.035); Squamous Epithelial Cell,Urine 2 /hpf (0-4); UA Billing (MACRO vs. MICRO) MICRO; Urobilinogen,Urine <2.0 mg/dL (<2.0); WBC,Urine 2 /hpf (0-5)
[2016-09-29] MEDS: SENNOSIDES-DOCUSATE SODIUM 1 EACH TAB PO SCH (20:09)
[2016-09-30 07:23] VITALS: BP 136/71; PULSE 73; TEMP 98.7
[2016-09-30 07:23] LABS: Basophils % (A) 0 %; CH 30.1; CHCM 32.7; Eosinophils # (A) 0.3 k/uL (0-0.7); Eosinophils % (A) 5 %; HDW 2.32; HGB 10.4 gm/dL (11.4-16.0); Luc # (Auto) 0.14; Luc % (Auto) 2; Lymphocytes # (A) 0.9 k/uL (1.0-4.8); Lymphocytes % (A) 15 %; MCHC 32.5 g/dL (31.0-37.0); MCV 92.5 fL (80.0-100.0); Mean Platelet Volume 7.3; Monocytes # (A) 0.3 k/uL (0-1.0); Monocytes % (A) 5 %; Neutrophils # (A) 4.2 k/uL (1.3-7.7); Neutrophils % (A) 72 %; RBC 3.46 m/uL (3.80-5.40); WBC 5.9 k/uL (3.8-10.6); WBC (Perox) 6.46
[2016-09-30 07:33] LABS: INR 3.7 (<1.1); Prothrombin Time 36.3 sec (9.0-12.0)
[2016-09-30 07:35] LABS: ALT 33 U/L (9-52); AST 37 U/L (14-36); Alkaline Phosphatase 62 U/L (38-126); Anion Gap 8 mmol/L; Blood Urea Nitrogen 16 mg/dL (7-17); Calcium 8.3 mg/dL (8.4-10.2); Carbon Dioxide 28 mmol/L (22-30); Chloride 105 mmol/L (98-107); Glucose 90 mg/dL (74-99); Non-African American GFR(MDRD) >60 (>60 ml/min/1.73 sqM); Potassium 4.4 mmol/L (3.5-5.1); Sodium 141 mmol/L (137-145); Total Bilirubin 0.8 mg/dL (0.2-1.3); Total Protein 5.9 g/dL (6.3-8.2)
[2016-09-30] MEDS: hydrOXYzine PAMOATE 25 MG CAP PO PRN ×2 (07:54→12:34)
[2016-09-30] MEDS: HYDROcodone/APAP 5-325MG 1 EACH TAB PO PRN ×2 (07:56→12:35)
[2016-09-30] MEDS: LORATADINE 10 MG TAB PO SCH (07:57)
[2016-09-30] MEDS: FAMOTIDINE 20 MG TAB PO SCH (07:57)
--- NOTE | 2016-09-30 08:23 | XR ---
EXAMINATION TYPE: XR knee limited LT DATE OF EXAM ORDERED: 09/30/2016 HISTORY: knee pain, s/p fall. COMPARISON: Previous study dated 03/28/2011. FINDINGS: There is a left knee arthroplasty in place. Prosthetic elements appear in good position. N o acute osseous lesion is seen. IMPRESSION: STATUS POST LEFT KNEE ARTHROPLASTY.
--- NOTE | 2016-09-30 08:39 | P.PN ---
Subjective Principal diagnosis: Left intertrochanteric fracture. Status post closed reduction with IT nail insertion left hip. This is an 85-year-old female who is status post close reduction with insertion of intertrochanteric nail of the left hip. She was doing quite well but then had some increased pain while ambulating. She states that her pain is unchanged today. She was able to get up to the chair yesterday. She is complaining of increased pain to the knee today. Objective - Vital Signs Vital signs: Vital Signs Temp 98.7 F 09/30/16 07:22 Pulse 73 09/30/16 07:22 Resp 16 09/30/16 07:22 BP 136/71 09/30/16 07:22 Pulse Ox 93 L 09/30/16 07:22 Intake & Output 09/29/16 09/30/16 09/30/16 18:59 06:59 18:59 Other: Voiding Method Bedpan Bedpan Bedside Commode Diaper # Voids 2 0 - Exam This is an 85-year-old female in no acute distress. She is alert and oriented 3. Exam of the left hip reveals that her incisions look good. There is no erythema or ecchymosis. There is no drainage. She has full foot ankle motion without difficulty or pain. There is mild pain with logroll of the hip. She points to her knee as source of pain today. There is no pain to palpation about the sacrum or low back. Neurovascular status to the lower extremity is intact. - Labs CBC & Chem 7: 09/30/16 06:22 09/30/16 06:25 Labs: Abnormal Lab Results - Last 24 Hours (Table) 09/29/16 09/29/16 09/30/16 Range/Units 06:39 17:50 06:22 RBC 3.46 L (3.80-5.40) m/uL Hgb 10.4 L (11.4-16.0) gm/dL Hct 32.0 L (34.0-46.0) % Lymphocytes # 0.9 L (1.0-4.8) k/uL PT 22.5 H (9.0-12.0) sec Calcium (8.4-10.2) mg/dL AST (14-36) U/L Total Protein (6.3-8.2) g/dL Albumin (3.5-5.0) g/dL Urine Protein Trace H (Negative) Ur Leukocyte Esterase Trace H (Negative) Urine Bacteria Rare H (None) /hpf Urine Mucus Rare H (None) /hpf 09/30/16 09/30/16 Range/Units 06:22 06:25 RBC (3.80-5.40) m/uL Hgb (11.4-16.0) gm/dL Hct (34.0-46.0) % Lymphocytes # (1.0-4.8) k/uL PT 36.3 H (9.0-12.0) sec Calcium 8.3 L (8.4-10.2) mg/dL AST 37 H (14-36) U/L Total Protein 5.9 L (6.3-8.2) g/dL Albumin 3.0 L (3.5-5.0) g/dL Urine Protein (Negative) Ur Leukocyte Esterase (Negative) Urine Bacteria (None) /hpf Urine Mucus (None) /hpf Microbiology - Last 24 Hours (Table) 09/29/16 17:50 Urine Culture - Preliminary Urine,Clean Catch Assessment and Plan (1) Hip fracture, left Status: Acute (2) Intertrochanteric fracture of left hip Status: Acute Plan: The clinical findings are discussed with the patient. X-rays of the left hip and pelvis taken today were reviewed. There is avulsion of the lesser trochanter which was less evident on initial films. X-rays of the left knee are taken today which reveal total knee components in good position and alignment. There is no fracture noted. She is cleared to be discharged to rehab from an orthopedic standpoint.
--- NOTE | 2016-09-30 08:41 | P.PN ---
Progress Note - Text This is an addendum to the discharge summary. Patient's discharge had been held due to fever and pain management issues. We are anticipating discharge to inpatient rehab today if cleared medically.
[2016-09-30] MEDS ORDERED: ATENOLOL 12.5 MG TAB PO SCH (09:00)
[2016-09-30] MEDS: ENOXAPARIN 40 MG/0.4 ML SYRINGE SQ SCH (09:41)
--- NOTE | 2016-09-30 10:06 | P.PN ---
Subjective this is a 85-year-old female, patient of Dr. Rowe. She has a known past medical history of hypertension, hyperlipidemia and osteoarthritis. She also has a remote history of smoking. Patient was cleaning her kitchen in her house shoes that have. She tripped and fell landing on her left hip. She was unable to get up. Ambulance was called and she was brought into the emergency room. She was found to have a left hip fracture. She was admitted to the orthopedics service. Patient tolerated surgery of the left hip well. Yesterday she is walking with the nurse and had increased pain in her left hip. Repeat x-ray obtained. Was reviewed by orthopedics. And they have cleared her for discharge to [facility]. Patient did have a temp of 101.1 and she admits to a cough and some chills. Chest x-ray has been ordered. She denies any chest pain or shortness of breath. Denies any nausea or vomiting. Last bowel movement 2 days ago. Denies any burning with urination. 09/30/2016 patient had been complaining of left knee pain. Orthopedics ordered an x-ray of the left knee. No acute changes noted on x-ray. Did show previous left knee arthroplasty. Orthopedics have cleared patient for discharge. Patient has had no focal further fevers. Chest x-ray would did reveal evidence of atelectasis. No significant evidence of a UTI on urinalysis. Her urine culture and blood culture pending. However, patient is had no elevation in her white count and no further fevers. Likely the fever was related to atelectasis and will encourage incentive spirometry use. Objective - Vital Signs Vital signs: Vital Signs Temp 98.7 F 09/30/16 07:22 Pulse 73 09/30/16 07:22 Resp 16 09/30/16 07:22 BP 136/71 09/30/16 07:22 Pulse Ox 93 L 09/30/16 07:22 Intake & Output 09/29/16 09/30/16 09/30/16 18:59 06:59 18:59 Intake Total 200 Balance 200 Intake: Oral 200 Other: Voiding Method Bedpan Bedpan Bedside Commode Diaper # Voids 2 0 - Exam Head normocephalic Neck supple Lungs diminished at the bases Heart regular rate and rhythm S1-S2, no rub or gallop Abdomen is soft nontender nondistended positive bowel sounds no hepatosplenomegaly Extremities trace swelling noted on left leg. Hip incision clean dry and intact Neuro alert and orientated to 3 - Labs CBC & Chem 7: 09/30/16 06:22 09/30/16 06:25 Labs: Abnormal Lab Results - Last 24 Hours (Table) 09/29/16 09/30/16 09/30/16 Range/Units 17:50 06:22 06:22 RBC 3.46 L (3.80-5.40) m/uL Hgb 10.4 L (11.4-16.0) gm/dL Hct 32.0 L (34.0-46.0) % Lymphocytes # 0.9 L (1.0-4.8) k/uL PT 36.3 H (9.0-12.0) sec Calcium (8.4-10.2) mg/dL AST (14-36) U/L Total Protein (6.3-8.2) g/dL Albumin (3.5-5.0) g/dL Urine Protein Trace H (Negative) Ur Leukocyte Esterase Trace H (Negative) Urine Bacteria Rare H (None) /hpf Urine Mucus Rare H (None) /hpf 09/30/16 Range/Units 06:25 RBC (3.80-5.40) m/uL Hgb (11.4-16.0) gm/dL Hct (34.0-46.0) % Lymphocytes # (1.0-4.8) k/uL PT (9.0-12.0) sec Calcium 8.3 L (8.4-10.2) mg/dL AST 37 H (14-36) U/L Total Protein 5.9 L (6.3-8.2) g/dL Albumin 3.0 L (3.5-5.0) g/dL Urine Protein (Negative) Ur Leukocyte Esterase (Negative) Urine Bacteria (None) /hpf Urine Mucus (None) /hpf Microbiology - Last 24 Hours (Table) 09/29/16 17:50 Urine Culture - Preliminary Urine,Clean Catch Assessment and Plan Plan: 1. Acute left hip fracture: Status post closed reduction and intramedullary nailing of the left hip intraventricular fracture. Patient is orthopedically cleared for discharge. Continue DVT prophylaxis with Coumadin. INR elevated at 3.7. Would recommend to hold Coumadin tonight and tomorrow night. And then resume the Coumadin 2.5 mg daily. Continue to monitor PT/INR closely outpatient 2. Essential hypertension continue with the atenolol 3. Seasonal ALLERGIES: Continue Claritin 4. History of hyperlipidemia 5. Fever spike on evening likely related to atelectasis. Chest x-ray showed evidence of atelectasis. Encourage incentive spirometry use and deep breathing exercises. Urinalysis showed no evidence of UTI. Urine culture and blood culture pending. However patient has had no further fevers and white count is normal. There is no evidence of cellulitis at the incision site. Patient is medically stable for discharge to ECF. And will follow-up with culture results while in ECF. Patient is medical stable to be discharged to [facility]. Dr. Love we'll follow patient at [facility] I performed an examination of the patient and discussed their management with the physician Insurance Solicitor. I have reviewed the Physician Insurance Solicitor's notes and agree with the documented findings and plan of care
[2016-09-30] MEDS ORDERED: KETOROLAC 30 MG/ML 1 ML VIAL IVP STA (10:18)
== END 2016-09-30 13:10 | DRG 481 ==
LOC: EC 12:17 → 5MS5E 13:17 → 3SUR 09-26 14:05
PROVIDERS: ADMIT Orthopaedic Surgery; ATTEND Orthopaedic Surgery
PROC: 0QS736Z Reposition Left Upper Femur with Intramedullary Internal Fixation Device, Percutaneous Approach (ICD-10-PCS; principal; 2016-09-26 10:05)
DX: S72.142A Displaced intertrochanteric fracture of left femur, initial encounter for closed fracture (principal); D62 Acute posthemorrhagic anemia; J98.11 Atelectasis; I10 Essential (primary) hypertension; E78.5 Hyperlipidemia, unspecified; M19.90 Unspecified osteoarthritis, unspecified site; M25.522 Pain in left elbow; J30.2 Other seasonal allergic rhinitis; Z87.891 Personal history of nicotine dependence; Z96.652 Presence of left artificial knee joint; Z91.81 History of falling; W01.0XXA Fall on same level from slipping, tripping and stumbling without subsequent striking against object, initial encounter; Y92.9 Unspecified place or not applicable
CPT/HCPCS: 71010; 72170; 73501; 73502; 80053; 81001; 81003; 82550; 82553; 84100; 84443; 84484; 85025; 85610; 85730; 87040; 87086; 93005; 94760; 96361; 96374; 96375; 99285

== ENCOUNTER → 2020-06-11 | Outpatient (CLI) | payer MEDICARE, BC ==
[2020-06-11 12:00] LABS: Basophils % (A) 1 %; Eosinophils # (A) 0.1 k/uL (0-0.7); Eosinophils % (A) 2 %; HCT 39.9 % (34.0-46.0); HGB 12.7 gm/dL (11.4-16.0); Lymphocytes # (A) 0.7 k/uL (1.0-4.8); Lymphocytes % (A) 12 %; MCH 28.5 pg (25.0-35.0); MCHC 31.9 g/dL (31.0-37.0); MCV 89.3 fL (80.0-100.0); Monocytes # (A) 0.3 k/uL (0-1.0); Monocytes % (A) 5 %; Neutrophils # (A) 4.4 k/uL (1.3-7.7); Neutrophils % (A) 79 %; Platelet Count 327 k/uL (150-450); RBC 4.47 m/uL (3.80-5.40); RDW 14.3 % (11.5-15.5); WBC 5.7 k/uL (3.8-10.6)
--- NOTE | 2020-06-11 12:01 | CT ---
EXAMINATION TYPE: CT hip LT wo con DATE OF EXAM: 06/11/2020 COMPARISON: None HISTORY: Unspecified injury, fall [address] DLP: 269 mGycm Automated exposure control for dose reduction was used. Unenhanced CT of the left hip was [facility] with bone and soft tissue window settings submitted. Coronal axial and sagittal views are reviewe d. FINDINGS: There is dynamic compression screw and intramedullary femoral patrice in place with resultant streak fifi fact limiting evaluation. There is evidence for nonacute superior pubic ramus fracture on the left. N o acute displaced fracture is seen with certainty. Moderate degenerative joint space narrowing apprec iated. IMPRESSION: NO EVIDENCE FOR ACUTE FRACTURE SEEN ON THIS LIMITED STUDY.
[2020-06-11 12:11] LABS: ALT 12 U/L (4-34); AST 28 U/L (14-36); African American GFR (CKD) >90 (>60 ml/min/1.73 sqM); Albumin 4.1 g/dL (3.5-5.0); Alkaline Phosphatase 122 U/L (38-126); Anion Gap 8 mmol/L; Blood Urea Nitrogen 20 mg/dL (7-17); Calcium 9.6 mg/dL (8.4-10.2); Carbon Dioxide 31 mmol/L (22-30); Chloride 100 mmol/L (98-107); Creatine Kinase 58 U/L (30-135); Glucose 115 mg/dL (74-99); LDH 497 U/L (313-618); Magnesium 1.9 mg/dL (1.6-2.3); Non-African American GFR(CKD) 78 (>60 ml/min/1.73 sqM); Sodium 139 mmol/L (137-145); Total Bilirubin 0.4 mg/dL (0.2-1.3); Total Protein 7.2 g/dL (6.3-8.2)
[2020-06-11 21:27] LABS: Hemoglobin A1C 6.2 % (4.0-6.0)
== END | disposition home or self-care (01) ==
LOC: RADCTMAIN 10:59
PROVIDERS: ATTEND Family Medicine
DX: Z00.00 Encounter for general adult medical examination without abnormal findings (principal); S79.912A Unspecified injury of left hip, initial encounter; M25.559 Pain in unspecified hip; Z86.73 Personal history of transient ischemic attack (TIA), and cerebral infarction without residual deficits
CPT/HCPCS: 36415; 80053; 82306; 82550; 83036; 83615; 83735; 84443; 85025; 85379

== ENCOUNTER → 2020-06-11 | Outpatient (CLI) | payer MEDICARE, BC ==
--- NOTE | 2020-06-11 16:27 | US ---
EXAMINATION TYPE: US venous doppler duplex LE LT DATE OF EXAM: 06/11/2020 4:20 PM COMPARISON: NONE CLINICAL HISTORY: R79.1 ABNORMAL COAGULATION. Left leg pain SIDE PERFORMED: Left TECHNIQUE: The lower extremity deep venous system is examined utilizing real time linear array sonog ladan with graded compression, doppler sonography and color-flow sonography. VESSELS IMAGED: Common Femoral Vein Deep Femoral Vein Greater Saphenous Vein * Femoral Vein Popliteal Vein Small Saphenous Vein * Proximal Calf Veins (* superficial vessels) Left Leg: Negative for DVT Called Dr's office with results at time of exam IMPRESSION: No evidence for DVT.
== END | disposition home or self-care (01) ==
LOC: RADUSWWP 16:01
PROVIDERS: ATTEND Family Medicine
DX: R79.1 Abnormal coagulation profile (principal)

== ENCOUNTER → 2020-11-02 | Outpatient (CLI) | payer MEDICARE, BC ==
--- NOTE | 2020-11-02 12:17 | CT ---
EXAMINATION TYPE: CT brain wo con DATE OF EXAM: 11/02/2020 COMPARISON: 10/22/2014 HISTORY: Dizziness. CT DLP: [address] of the brain was performed. The ventricles, basal cisterns and sulci overlying the cerebral convexities demonstrate mild enlargem ent. There is no evidence for intracranial hemorrhage or sulcal effacement. There is decreased attenuation about the periventricular white matter and deep white matter of both c erebral hemispheres, compatible with chronic small vessel ischemia. Differential diagnosis does inclu de demyelination. No mass effects are seen.No midline shift. Osseous calvarium is intact. Complete opacification right maxillary sinus. If symptoms persist consider MRI. IMPRESSION: 1. Age related atrophic and chronic small vessel ischemic change without acute intracranial process s een at this time.
== END | disposition home or self-care (01) ==
LOC: RADCTMAIN 11:39
PROVIDERS: ATTEND Family Medicine
DX: I67.82 Cerebral ischemia (principal)
CPT/HCPCS: 70450

== ENCOUNTER → 2020-12-24 | Outpatient (CLI) | payer MEDICARE, BC ==
[2020-12-24 12:07] LABS: African American GFR (CKD) >90 (>60 ml/min/1.73 sqM); Blood Urea Nitrogen 18 mg/dL (7-17); Non-African American GFR(CKD) 79 (>60 ml/min/1.73 sqM)
--- NOTE | 2020-12-24 13:20 | CT ---
EXAMINATION TYPE: CT angio head neck DATE OF EXAM: 12/24/2020 HISTORY: Headache, dizziness, vision loss, neck pain. COMPARISON: CT brain November 02, 2020 CT DLP: 1963 mGycm. Automated Exposure Control for Dose Reduction was Utilized. TECHNIQUE: CTA scan of the head and neck are performed without and with IV Contrast, patient injecte d with 65 mL of Isovue 370, axial images are obtained, coronal and sagittal reformatted images are re viewed. 3D reconstructed images are created on an independent workstation and reviewed. FINDINGS: Carotid/Vascular Structures: Normal 3 vessel origins from the aortic arch. Normal origin right common carotid artery from right brachiocephalic artery. No significant plaque or stenosis in common caroti d arteries bilaterally. Mild to moderate peripheral plaque at carotid bulb level extending into proxi mal internal carotid arteries bilaterally left greater than right. No significant stenosis is present . Patent external carotid arteries bilaterally without significant stenosis. Codominant vertebrobasilar system patent to basilar junction. Hypoplastic bilateral posterior communi cating arteries. No significant focal stenosis or aneurysm in the posterior circulation. Patent anter ior communicating artery. No significant focal stenosis or aneurysm in the anterior circulation. Other: Noncontrast CT shows no acute cranial hemorrhage or midline shift. Mild to moderate diffuse ve ntricular and sulcal prominence is redemonstrated. Mild to moderate low-attenuation in the periventri cular white matter again seen. Heterogeneous material filling visualized portion of right maxillary s inus redemonstrated. Scleral calculation bilateral globes redemonstrated. Underlying levoconvex scoliosis. Exaggerated cervical curvature. IMPRESSION: No significant stenosis in common or internal carotid arteries bilaterally. No significa nt stenosis or aneurysm at level of the [place]. NASCET criteria was used in interpretation of this exam?
== END | disposition home or self-care (01) ==
LOC: RADCTMAIN 11:17
PROVIDERS: ATTEND Psychiatry & Neurology Neurology
DX: R51.9 Headache, unspecified (principal); R42 Dizziness and giddiness; M54.2 Cervicalgia; H54.7 Unspecified visual loss
CPT/HCPCS: 82565; 84520; 70496; 70498; 36415; Q9967

== ENCOUNTER → 2021-06-25 | Outpatient (CLI) | payer MEDICARE, BC ==
--- NOTE | 2021-06-25 08:01 | MR ---
EXAMINATION TYPE: MR brain wo con DATE OF EXAM: 06/25/2021 COMPARISON: CT brain November 02, 2020 HISTORY: Prior CT on synapse, no prior MR, fall on ice, dizziness, MUÑOZ TECHNIQUE: Multiplanar, multisequence imaging of the brain and brainstem is performed without IV cont rast. FINDINGS: Diffusion weighted images demonstrate no evidence of a recent infarct or other diffusion abnormality. There is mild to moderate ventricular and sulcal prominence. Scattered foci of T2 hyperintensity are seen throughout the white matter greatest in the periventricular levels. These lesions are nonspecifi c in appearance and distribution. T2 Star weighted images show no suspicious intraparenchymal blood p roduct. Midline structures demonstrate normal morphology. The craniocervical junction appears within normal limits. Normal vascular flow voids are present. Right maxillary findings redemonstrated completely fi lled low T1 and increased T2 signal without bony destruction. Regular. Sinuses are clear. No suspicio us opacification mastoid air cells. IMPRESSION: There is [id number]-yi-chrunecm diffuse cerebral atrophy and chronic small vessel ischemic scruggs ge identified. No acute findings are seen.
== END | disposition home or self-care (01) ==
LOC: RADMRIMAIN 07:09
PROVIDERS: ATTEND Internal Medicine Geriatric Medicine
DX: I67.82 Cerebral ischemia (principal); G31.89 Other specified degenerative diseases of nervous system
CPT/HCPCS: 70551

== ENCOUNTER → 2021-10-20 | Outpatient (CLI) | payer MEDICARE, BC | END | disposition home or self-care (01) | LOC: LABWHC1 12:06 | PROVIDERS: ATTEND Internal Medicine Interventional Cardiology | DX: E03.9 Hypothyroidism, unspecified (principal) | CPT/HCPCS: 36415; 84439; 84443 ==